=== PATIENT | male | born 1955 | race Caucasian/White ===

== ENCOUNTER → 2018-06-09 | Outpatient (CLI) | payer BC ==
[~2018-06-09] MED LIST: ALL DAY ALLERGY10 M1 PO; MOMENI
== END | disposition home or self-care (01) ==
LOC: PLD 11:04 → LAB SHORT 11:04
DX: D48.5 Neoplasm of uncertain behavior of skin (principal)
CPT/HCPCS: 88305

== ENCOUNTER 2020-10-13 12:57 | Emergency (ER) | payer MEDICARE ==
[~2020-10-13] VITALS: Ht 170.2 cm; Wt 81.7 kg
[2020-10-13] MEDS ORDERED: Norco 5-325 Ta1 EACH PO (14:56)
[2020-10-13] MEDS ORDERED: CEPH500 PO (14:56)
== END 2020-10-13 15:16 | disposition home or self-care (01) ==
LOC: ER 12:57
DX: S62.522B Displaced fracture of distal phalanx of left thumb, initial encounter for open fracture (principal); Z87.891 Personal history of nicotine dependence; W31.2XXA Contact with powered woodworking and forming machines, initial encounter
CPT/HCPCS: 73140; 90471; 90714; 96374; 99283-25; J0690

== ENCOUNTER → 2021-08-01 | Outpatient (CLI) | payer MEDICARE ==
[~2021-08-01] MED LIST changes: +CEPH500 PO; +Norco 5-325 Ta1 EACH PO
== END ==
LOC: PLD 11:23 → LAB SHORT 11:23
DX: L82.1 Other seborrheic keratosis (principal)
CPT/HCPCS: 88305